=== PATIENT | male | born 1950 | race American Indian/Alaskan Native ===

== ENCOUNTER 2017-06-11 11:38 | Day surgery (SDC) | payer MEDICARE ==
[~2017-06-11 11:38] MED LIST: ANCEF/STERILE WATER 2 GM/20 ML IV NR; GARAMYCIN/NS 80 MG/100 ML 100 ML IV SCH
--- NOTE | 2017-06-11 12:46 | Anesthesia Consultation ---
Anesthesia Consult and Med Hx Date of service: 06/11/17 - Airway Anesthetic Teeth Evaluation: Dentures (upper and lower) ROM Head & Neck: Adequate Mental/Hyoid Distance: Adequate Mallampati Class: Class II Intubation Access Assessment: Probably Good - Pre-Operative Health Status ASA Pre-Surgery Classification: ASA3 - Pulmonary Hx Smoking: Yes (1/ PPD) Hx Sleep Apnea: No (LALI PRE SCREEN HIGH RISK.) - Cardiovascular System Hx Hypertension: Yes (X 15 YRS) Hx Peripheral Vascular Disease: Yes (h/o DVT, been of blood thinners for atleast 3 month) - Central Nervous System Hx Psychiatric Problems: Yes ("MENTALLY HANDICAPPED") - Endocrine Hx Renal Disease: No (urinary incontinence, elevated PSA)
--- NOTE | 2017-06-11 12:46 | Anesthesia Day of Surgery ---
Anesthesia Day of Surgery - Day of Surgery Patient Examined: Yes Patient H&P Reviewed: Yes Patient is NPO: Yes
[2017-06-11] MEDS ORDERED: NACL BACTERIOSTATIC INFILTRATI ONE (12:53)
[2017-06-11] MEDS ORDERED: SUBLIMAZE ONE (12:55)
[2017-06-11] MEDS ORDERED: NACL 0.9% 1000 ML 1,000 ML IV SCH (13:00)
[2017-06-11] MEDS ORDERED: VERSED IV NR (13:00)
[2017-06-11] MEDS ORDERED: PEPCID IV NR (13:00)
[2017-06-11] MEDS ORDERED: PERCOCET 5/325 PO PRN (13:12)
[2017-06-11] MEDS ORDERED: DILAUDID IV PRN (13:12)
[2017-06-11] MEDS ORDERED: ZOFRAN IV PRN (13:12)
[2017-06-11] MEDS ORDERED: XYLOCAINE MPF 2% ONE (13:31)
[2017-06-11] MEDS ORDERED: DIPRIVAN 10 MG/ML IV ONE (13:31)
[2017-06-11] MEDS ORDERED: ZOFRAN ONE (14:31)
[2017-06-11] MEDS ORDERED: DECADRON ONE (14:31)
[2017-06-11] MEDS ORDERED: WATER FOR IRRIG STERILE IR ONE ×2 (14:37)
--- NOTE | 2017-06-11 14:54 | Short Stay Summary ---
Short Stay Documentation Date of service: 06/11/17 - History H&P: obtained from office - Allergies and Medications Current Medications: Allergies No Known Allergies Allergy (Verified 06/06/17 16:31) Home Medications Medication Instructions Recorded Confirmed Last Taken Type Divalproex Dr [DepaKOTE DR] 500 mg PO DAILY 06/06/17 06/11/17 06/11/17 History Fluticasone/Vilanterol [Breo 1 puff INHALATION DAILY 06/06/17 06/11/17 06/11/17 History Ellipta 100-25 Mcg INH] Olanzapine [Zyprexa] 40 mg PO QHS 06/06/17 06/11/17 06/10/17 History amLODIPine [Norvasc] 10 mg PO DAILY 06/06/17 06/11/17 06/11/17 History Active Medications Cefazolin Sodium (Ancef/Sterile Water 2 Gm/20 Ml) 2 gm IV PREOP NR Stop: 06/11/17 23:59 Famotidine (Pepcid) 20 mg IV PREOP NR Stop: 06/11/17 23:01 Last Admin: 06/11/17 13:21 Dose: 20 mg Hydromorphone HCl (Dilaudid) 0.25 mg IV Q10MIN PRN PRN Reason: Pain, Moderate (4-6) Stop: 06/14/17 13:13 Gentamicin Sulfate/Sodium Chloride (Garamycin/Ns 80 Mg/100 Ml) 100 mls @ 200 mls/hr IV PREOP RAQUEL Stop: 06/11/17 23:59 Sodium Chloride (Nacl 0.9% 1000 Ml) 1,000 mls @ 100 mls/hr IV DIRECT RAQUEL Last Admin: 06/11/17 13:20 Dose: 100 mls/hr Midazolam HCl (Versed) 2 mg IV PREOP NR Stop: 06/11/17 23:59 Last Admin: 06/11/17 13:32 Dose: 2 mg - Brief post op/procedure progress note Date of procedure: 06/11/17 Pre-op diagnosis: elevated psa 180 Post-op diagnosis: same Procedure: cysto, rpg, pus 40cc / bx x 12 Anesthesia: GETA Surgeon: INES DE ANDA Estimated blood loss: minimal Pathology: list (12 core bx) Specimen disposition: to lab Condition: stable - Hospital course Hospital course: cipro,norco, post op info on chart - Disposition Condition at discharge: Stable Disposition: DC-01 TO HOME OR SELFCARE Short Stay Discharge Plan Follow up with: JANNY UMANZOR MD [Primary Care Provider] - 7 Days
--- NOTE | 2017-06-11 15:13 | Fluoroscopy Report ---
RETROGRADE PYELOGRAM: History: Elevated PSA. There is adequate filling of the ureters and intrarenal collecting systems with no filling defects or anatomic abnormalities identified. Impression: No abnormality identified.
--- NOTE | 2017-06-11 15:14 | Post Anesthesia Evaluation ---
- Post Anesthesia Evaluation Patient Participated: Yes (blunted interaction) Airway Patent: Yes Stable Respiratory Function: Yes Temp > 96.8F: Yes Pain Manageable: Yes Adequeate Hydration: Yes Anesthesia Complications: No
[2017-06-11 18:06] VITALS: BP 161/92
--- NOTE | 2017-06-11 20:46 | Operative Report ---
PREOPERATIVE DIAGNOSIS: Elevated PSA 180. POSTOPERATIVE DIAGNOSIS: Elevated PSA 180. PROCEDURE: Cystoscopy, bilateral retrograde pyelograms, prostate ultrasound (40 mL) and a biopsy of the prostate x 12. SURGEON: Quang Crow MD ANESTHESIA: General. ESTIMATED BLOOD LOSS: Minimal. FLUIDS: Crystalloid. COMPLICATIONS: No complications. INDICATIONS: This patient is a 67-year-old gentleman relocated from [place], [place], with possible diagnosis of prostate cancer; however, we could not get any of records. His PSA was 180, has a history of hypertension, bipolar disease, hepatitis. We discussed options. He presents now for surgical intervention. DESCRIPTION OF PROCEDURE: The patient was taken to the operative suite, placed in a supine position. After adequate general anesthesia, placed in a dorsal lithotomy position, prepped and draped in a sterile fashion. Pancystourethroscopy was performed with 22 Australian Storz cystoscope. No urethral abnormalities. His prostate displayed some mild trilobar obstruction. His bladder, no tumors or stones were noted. Both ureteral orifices in normal position. Bilateral retrograde pyelograms were obtained with an 8 Australian Marlene catheter and 8 mL of contrast. No filling defects or obstruction. Next, using an ultrasound probe, 3 dimensions were taken, a total volume of 40 mL. No hypoechoic areas; however, it does look like the patient has had prostatic seeds. A 12 core biopsy was taken without difficulty, sent for routine pathologic evaluation. He does on rectally have some asymmetry, right side greater than the left. Bladder was drained. He was extubated and taken to recovery room. He will go home on [facility] and [place] and follow up in the office. JOB# [id number] [facility]
--- NOTE | 2017-06-12 07:34 | Ultrasound Report ---
ULTRASOUND GUIDE INTRAOPERATIVE History: Elevated PSA, ultrasound guidance for prostate biopsy. Findings: Endorectal ultrasound guidance was provided by radiology during prostate biopsy by urology. Prostate volume measures 40.1 cc. Please correlate with the procedural report by Dr. Crow. Impression: Successful prostate biopsy under ultrasound guidance.
== END 2017-06-11 17:00 | disposition home or self-care (01) ==
LOC: OR 11:38
PROVIDERS: ATTEND Urology
DX: R97.20 Elevated prostate specific antigen [PSA] (principal); I10 Essential (primary) hypertension; F17.210 Nicotine dependence, cigarettes, uncomplicated; F31.9 Bipolar disorder, unspecified; E78.5 Hyperlipidemia, unspecified; K75.9 Inflammatory liver disease, unspecified; N42.89 Other specified disorders of prostate; I73.9 Peripheral vascular disease, unspecified; J44.9 Chronic obstructive pulmonary disease, unspecified; G40.909 Epilepsy, unspecified, not intractable, without status epilepticus; Z86.718 Personal history of other venous thrombosis and embolism
CPT/HCPCS: 52005; 55700; 74420; 76998; 88305; A4217; C1758; J0690; J1100; J1170; J1580; J2250; J2405; J2704; J3010; J7030; Q9967